=== PATIENT | female | born 1980 | race Hispanic/Latino ===

== ENCOUNTER 2022-05-28 09:00 | Observation (INO) | payer OTHER ==
[2022-05-26 15:22] LABS: BASOPHILS % 0.4 % (0.0-1.0); EOSINOPHILS # (AUTO) 0.1 (0.0-0.4); EOSINOPHILS % 1.5 % (0.0-6.0); HEMATOCRIT 40.2 % (34.2-44.1); HEMOGLOBIN 13.9 g/dL (12.0-16.0); LYMPHOCYTES # (AUTO) 2.8 (1.0-3.2); MEAN CORPUSCULAR HEMOGLOBIN 30.2 pg (28-32); MEAN CORPUSCULAR HGB CONC 34.6 g/dL (31-35); MEAN CORPUSCULAR VOLUME 87.4 fL (81-99); MONOCYTES # (AUTO) 0.6 (0.2-0.8); MONOCYTES % 6.8 % (4.4-11.3); NEUTROPHILS # (AUTO) 4.5 (2.1-6.9); NEUTROPHILS % 56.1 % (38.7-80.0); PLATELET COUNT 274 x10e3/uL (140-360); RED CELL DISTRIBUTION WIDTH 12.2 % (11.7-14.4)
[2022-05-26 15:34] LABS: INR 0.88; PROTHROMBIN TIME 12.4 seconds (11.9-14.5)
[2022-05-26 15:35] LABS: PARTIAL THROMBOPLASTIN TIME 33.7 seconds (23.8-35.5)
[2022-05-26 15:38] LABS: ANION GAP 15.1 mmol/L (8-16); CALCIUM 9.7 mg/dL (8.4-10.2); CREATININE, SERUM 0.66 mg/dL (0.57-1.11); POTASSIUM 4.1 mmol/L (3.5-5.1)
[~2022-05-28] VITALS: Ht 152.4 cm; Wt 70.8 kg
[~2022-05-28 09:00] MED LIST: ACETAMINOPHEN 1000 MG/100 ML 100 ML IV ONE; BUSPIRONE HCL5 MG PO; COLACE100 MG/10 PO; ELDERBERRY350 MG PO; LOESTRIN FE 1-1 EACH PO; MULTI-VITAMIN1 EAC1 PO; PROTONIX20 MG PO; SUGAMMADEX SODIUM 200 MG/2 ML VIAL IV ONE; THROMBIN FOR SOLN 5,000 UNIT VIAL ONE; VITAMIN C1000 MG PO; VITAMIN D3 COM1 EACH PO; Vancomycin IV 1 GM VIAL ONE; ZYRTEC10 M3 PO
[2022-05-28] MEDS ORDERED: LARIN 1.5 MG-31 EACH PO (09:49)
[2022-05-28] MEDS ORDERED: LACTATED RINGER'S 1,000 ML ONE (09:56)
[2022-05-28] MEDS ORDERED: CEFAZOLIN SODIUM 2 GM ONE (09:56)
[2022-05-28] MEDS ORDERED: FENTANYL CITRATE/PF 100MCG/2 ML INJ ONE (12:36)
[2022-05-28] MEDS ORDERED: ROCURONIUM BROMIDE 10 MG/ML 5ML VIAL IV ONE (13:10)
[2022-05-28] MEDS ORDERED: DEXAMETHASONE SOD PHOS INJ 4 MG/ML SDV ONE (13:10)
[2022-05-28] MEDS ORDERED: PROPOFOL IV EMULSION 10 MG/ML 20 ML VIAL ONE (13:10)
[2022-05-28] MEDS ORDERED: ONDANSETRON HCL INJ 2MG/ML 2ML 2 MG/ML VIAL ONE (13:10)
[2022-05-28] MEDS ORDERED: POVIDONE IODINE 0.05% 0.05 % ML PO ONE (13:10)
[2022-05-28] MEDS ORDERED: SEVOFLURANE INHAL SOLN 250 ML PEN BTL ONE (13:10)
[2022-05-28] MEDS ORDERED: LIDOCAINE HCL 2% LOCAL INJ 5 ML SDV VIAL INJ ONE (13:10)
[2022-05-28] MEDS ORDERED: KETOROLAC TROMETHAMINE 30 MG/ML VIAL ONE (13:10)
[2022-05-28] MEDS ORDERED: CEPACOL SORE THROAT LOZENGES PO PRN (13:45)
[2022-05-28] MEDS ORDERED: MORPHINE SULFATE 5 MG/ML VIAL IM PRN (13:45)
[2022-05-28] MEDS ORDERED: ACETAMINOPHEN 325 MG TAB PO PRN (13:45)
[2022-05-28] MEDS ORDERED: MAGNESIUM/ALUMINUM/SIMETHICONE 30 ML UDC PO PRN (13:45)
[2022-05-28] MEDS ORDERED: ZOLPIDEM TARTRATE 5 MG TAB PO PRN (13:45)
[2022-05-28] MEDS ORDERED: HYDROMORPHONE 2MG/ML 2 MG/ML ML IV PRN (13:45)
[2022-05-28] MEDS ORDERED: ONDANSETRON HCL INJ 2MG/ML 2ML 2 MG/ML VIAL IV PRN (13:45)
[2022-05-28] MEDS ORDERED: DOCUSATE SODIUM LIQD 100 MG/10 ML UDC PO PRN (13:45)
[2022-05-28] MEDS ORDERED: CARISOPRODOL 350 MG TAB PO PRN (13:45)
[2022-05-28] MEDS ORDERED: PROMETHAZINE HCL (IM) 25 MG/ML VIAL IM PRN (13:45)
[2022-05-28] MEDS ORDERED: HYDROCODON-ACE1 EA12 PO (13:48)
[2022-05-28 14:52] VITALS: BP 121/89
[2022-05-28 15:27] VITALS: BP_SYST 121; BP_SYST 126; BP_DIAS 84; BP_DIAS 89
[2022-05-28] MEDS: LACTATED RINGER'S 1,000 ML IV SCH ×2 (15:32→22:05)
[2022-05-28 16:41] VITALS: BP 121/89
[2022-05-28 20:00] VITALS: BP 113/82
[2022-05-28 20:07] VITALS: BP 121/89
[2022-05-29] VITALS: BP 114/83
[2022-05-29 04:00] VITALS: BP 108/87
[2022-05-29] MEDS: OXYCODONE/ACETAMINOPHEN 5-325 1 EACH TABLET PO PRN ×2 (04:17→08:57)
[2022-05-29 08:20] VITALS: BP 103/72
[2022-05-29 08:56] VITALS: BP 103/72
[2022-05-29] MEDS ORDERED: PANTOPRAZOLE SOD 40 MG TABEC PO SCH (09:00)
[2022-05-29] MEDS ORDERED: BUSPIRONE HCL 5 MG TAB PO SCH (09:00)
[2022-05-29] MEDS ORDERED: ASCORBIC ACID 500 MG TAB PO SCH (09:00)
[2022-05-29] MEDS ORDERED: LORATADINE 10 MG TAB PO SCH (09:00)
[2022-05-29 11:17] VITALS: BP 136/94
== END 2022-05-29 11:25 | disposition home or self-care (01) ==
LOC: OR 09:00 → PACU V 13:42 → MED/SURG3 14:54
PROVIDERS: ADMIT Neurological Surgery; ATTEND Neurological Surgery
DX: M50.022 Cervical disc disorder at C5-C6 level with myelopathy (principal); J45.909 Unspecified asthma, uncomplicated; I10 Essential (primary) hypertension; E03.9 Hypothyroidism, unspecified; Z71.82 Exercise counseling; Z71.3 Dietary counseling and surveillance; Z01.810 Encounter for preprocedural cardiovascular examination; Z01.812 Encounter for preprocedural laboratory examination; Z01.818 Encounter for other preprocedural examination; Z20.822 Contact with and (suspected) exposure to COVID-19; Z79.899 Other long term (current) drug therapy; Z68.30 Body mass index [BMI] 30.0-30.9, adult
CPT/HCPCS: 0223U; 20931; 22551; 22845; 36415; 71046; 72040; 76000; 80048; 81025; 85025; 85610; 85730; 86850; 86870; 86880; 86900; 86905; 88304; 88311; 93005; 99001; C1713 ×3; G0378 ×2; J0131; J0690 ×2; J1100; J1885; J2001; J2405; J2704; J3010; J3370; J7121; S0164